=== PATIENT | male | born 1985 | race Caucasian/White ===

== ENCOUNTER 2021-10-04 13:26 | Emergency (ER) | payer MEDICAID, SELFPAY ==
[2021-10-04 13:33] VITALS: BP 105/73; PULSE 74; RESP 16; TEMP 36.5; O2SAT 99
--- NOTE | 2021-10-04 14:37 | ED.SKABFB ---
HPI - Skin/Abscess/Foreign Bdy General Chief complaint: Skin/Abscess/Foreign Body Stated complaint: SPIDER BITE Time Seen by Provider: 10/04/21 14:22 Source: patient and RN notes reviewed Mode of arrival: ambulatory Limitations: no limitations History of Present Illness HPI narrative: Patient presents today complaining of swelling and possible abscess to his right forearm x2 to 3 days. He has picked off the scab and expressed slipped greed purulent discharge a few days ago. States pain radiates to his right elbow. Currently rates his pain 6/10 and has tried no medication for symptoms prior to arrival. MD complaint: abscess/boil Related Data Allergies Allergy/AdvReac Type Severity Reaction Status Date / Time Penicillins Allergy Intermediate Other Verified 10/04/21 14:41 tramadol Allergy Intermediate Swelling Verified 10/04/21 14:40 Review of Systems Review of Systems: CONSTITUTIONAL: Denies body aches, fever, chills, or sweats. EYES: Denies visual changes, redness, or discharge. ENT: Denies rhinorrhea, congestion, sore throat, or otalgia. CARDIOVASCULAR: Denies chest pain, palpitations, or edema. RESPIRATORY: Denies cough or dyspnea. GASTROINTESTINAL: Denies abdominal pain, nausea, vomiting, or diarrhea. GENITOURINARY: Denies dysuria or hematuria. SKIN: Denies rash, itching. + Possible spider bite to right forearm MUSCULOSKELETAL: Denies back pain, joint pain, or myalgia. NEUROLOGIC: Denies headache, numbness, tingling, or weakness. PSYCH: Denies depression or anxiety. PMFSH Comments At time of signature, I have reviewed and agree with nursing past medical, surgical, social and family history unless otherwise noted. Please see nursing chart for further information. There is no relevant family history pertinent to the presenting complaint Exam Narrative: GENERAL: Well-appearing, well-nourished, and in no acute distress. HEAD: Normocephalic, atraumatic. EYES: EOMI. No redness or drainage. Conjunctivae normal. ENT: Mucous membranes pink and moist. NECK: Normal AROM. CHEST: No respiratory distress. EXTREMITIES: Normal range of motion. No edema. SKIN: Warm, dry, no rash. Capillary refill normal. Normal skin turgor. 1.5 x 1 cm fluctuant area of erythema with a small scab in the center to right anterior forearm that is tender to palpation. Distal sensation intact. Capillary refill normal. Radial pulse normal. No red streaking noted. No induration noted. NEURO: No focal deficits. Alert and oriented x3. Gait steady. PSYCH: Normal affect. No signs of depression or anxiety. Course Course Level of Care: Express Care Visit Vital Signs Vital signs: Vital Signs Temperature 97.7 F 10/04/21 13:33 Pulse Rate 74 10/04/21 13:33 Respiratory Rate 16 10/04/21 13:33 Blood Pressure 105/73 10/04/21 13:33 Pulse Oximetry 99 10/04/21 13:33 Temperature 97.7 F 10/04/21 13:33 Pulse Rate 74 10/04/21 13:33 Respiratory Rate 16 10/04/21 13:33 Blood Pressure 105/73 10/04/21 13:33 Pulse Oximetry 99 10/04/21 13:33 Reviewed Procedures Abscess I/D upper extremity: Date of Incision: 10/04/21 Time of Incision: 14:38 Side (if applicable): right (Form) Sedation/analgesia: none Local Anesthetic: none Technique: other (Removed scab with 18-gauge needle and forceps.) Irrigation: No Packing used?: none I&D Results: Pus and Blood Abcess I&D Additional Comments: Dressed with Band-Aid MDM - Skin/Abscess/Foreign Bdy Differential Diagnosis Differential diagnosis: Likely abscess of skin or subcutaneous tissue, cellulitis, insect bites and impetigo Critical Care Time Critical Care Time Critical Care Time: No Discharge Plan Discharge Clinical Impression: Abscess of forearm, right Patient Disposition: Home, Self-Care Condition: Stable Instructions: Antibiotic Form, Abscess (ED), Abscess Incision and Drainage (DC) Additional Instru
== END 2021-10-04 14:45 | disposition home or self-care (01) ==
PROVIDERS: Emergency Provider Nurse Practitioner
DX: L02.413 Cutaneous abscess of right upper limb (principal)
CPT/HCPCS: 10060; 99213; G0463

== ENCOUNTER 2022-04-04 09:51 | Emergency (ER) | payer BC, SELFPAY ==
[2022-04-04 10:03] VITALS: BP 99/66; PULSE 82; RESP 16; TEMP 36.6; O2SAT 100
--- NOTE | 2022-04-04 12:22 | ED_ITS ---
HPI - Extremity Problem General Chief complaint: Extremity Problem,Nontraumatic Stated complaint: right leg pain Time Seen by Provider: 04/04/22 12:16 Source: patient and RN notes reviewed Mode of arrival: ambulatory Limitations: no limitations History of Present Illness HPI Narrative: Patient complaining of right buttock pain and right thigh pain posteriorly radiating to the right foot, intermittently over the last 2 months. Patient works in [employer]. patient denies bowel dysfunction, bladder dysfunction, altered sensation, focal weakness, or saddle numbness, Related Data Allergies Allergy/AdvReac Type Severity Reaction Status Date / Time Penicillins Allergy Intermediate Other Verified 10/04/21 14:41 tramadol Allergy Intermediate Swelling Verified 10/04/21 14:40 Review of Systems Review of Systems: All systems reviewed & are unremarkable except as noted in HPI and below Exam Narrative: General appearance: Well-developed, well-nourished Skin: Normal color Head: Normocephalic, nontraumatic Eyes: Clear conjunctiva ENT: Oropharynx normal, ears normal, nose normal Neck: Supple, nontender Chest and respiratory: Airway patent, no respiratory distress, no accessory muscle use Heart: Regular rate/rhythm Abdomen: Soft, nontender, no organomegaly, quiet bowel sounds Vascular: Normal peripheral pulses, normal capillary refill. 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, no gross motor deficit, positive right leg raising test Course Vital Signs Vital signs: Vital Signs Temperature 36.6 C 04/04/22 10:03 Pulse Rate 82 04/04/22 10:03 Respiratory Rate 16 04/04/22 10:03 Blood Pressure 99/66 L 04/04/22 10:03 Pulse Oximetry 100 04/04/22 10:03 Temperature 36.6 C 04/04/22 10:03 Pulse Rate 88 04/04/22 13:23 Respiratory Rate 18 04/04/22 13:23 Blood Pressure 128/72 04/04/22 13:23 Pulse Oximetry 100 04/04/22 13:23 Critical Care Time Critical Care Time Critical Care Time: No Discharge Plan Discharge Clinical Impression: Right lumbar radiculopathy Condition: Improved Instructions: Lumbar Radiculopathy (ED) Additional Instructions: Return if symptoms are worsening , call your family physician for appointment, take Tylenol as as needed for aches and pain, continue home medications. Prescriptions: New methylprednisolone [Medrol (Yogesh)] 4 mg tablets,dose pack See Rx Instructions PO .COMPLEX Qty: 21 0RF Rx Instructions: orally per package directions No Action sulfamethoxazole-trimethoprim [Bactrim DS] 800-160 mg tablet 1 tablet PO Q12H 10 Days Qty: 20 0RF Follow-up/Referrals: Tramaine Weber MD [Physician] - 04/06/22 UNKNOWN,DOCTOR [Primary Care Provider] - Stand Alone Forms: Work/School Release IP
[2022-04-04] MEDS: ACETAMINOPHEN 500 MG TABLET 1000 MG PO (12:52)
[2022-04-04] MEDS: IBUPROFEN 400 MG TABLET 800 MG PO (12:53)
[2022-04-04 13:23] VITALS: BP 128/72; PULSE 88; RESP 18; O2SAT 100
== END 2022-04-04 13:25 | disposition home or self-care (01) ==
PROVIDERS: Emergency Provider Emergency Medicine
DX: M54.16 Radiculopathy, lumbar region (principal)
CPT/HCPCS: 96372; 99283; A9270; J1100

== ENCOUNTER 2022-09-24 09:14 | Emergency (ER) | payer BC, SELFPAY ==
[2022-09-24 09:23] VITALS: BP 107/90; PULSE 93; RESP 16; TEMP 36.6; O2SAT 100
--- NOTE | 2022-09-24 10:18 | ED.GENADULT ---
HPI - General Adult General Chief complaint: Upper Respiratory Infection Stated complaint: sob Time Seen by Provider: 09/24/22 09:40 Source: patient Mode of arrival: ambulatory Limitations: no limitations History of Present Illness HPI narrative: patient is a 36-year-old male presenting with heaviness in chest inability to breathe . patient was seen at [facility] last on and was given inhaler, lost inhaler 3 days after. patient states he has been having these episodes of shortness of breath since. patient is also having bilateral ear pain with left ear is worse than right. reports he does use Q-tips to try to get wax out. patient also reports increased anxiety over the last year. patient had back surgery last April, continue to have back pain. States he does not take opioids for pain due to sister's overdose last year. but states he takes Tylenol and ibuprofen every day for pain with mild relief. he states father is dying of liver cancer and does not qualify for the transplant list at this time. he also reports loss of vision and right eye for a year and half after mowing accident, has not been seen for this complaint. patient states he is searching for a new primary care doctor that is covered by his insurance, Has an eye appointment tomorrow, and a pulmonology appointment in a week and half. Related Data Allergies Allergy/AdvReac Type Severity Reaction Status Date / Time tramadol Allergy Intermediate Swelling Verified 09/24/22 09:20 Review of Systems Review of Systems: CONSTITUTIONAL: Denies malaise, chills, sweats, or fever. EYES: Denies redness, or discharge. reports right eye vision loss ENT: Denies rhinorrhea, congestion, sinus pain or sore throat. Bilateral otalgia CARDIOVASCULAR: Denies chest pain, palpitations, or edema. RESPIRATORY: reports cough and dyspnea. GASTROINTESTINAL: Denies abdominal pain, nausea, vomiting, diarrhea, bloody, or mucous stools. GENITOURINARY: Denies dysuria or hematuria. SKIN: Denies rash or itching. MUSCULOSKELETAL: Denies joint pain, or myalgia. reports chronic back pain NEUROLOGIC: Denies numbness, weakness, or headache. PSYCHIATRIC: Denies anxiety or depression. All systems reviewed & are unremarkable except as noted in HPI and below PMFSH Comments At time of signature, agree with nursing past medical, surgical, social and family history. There is no relevant family history pertinent to the presenting complaint. Exam Narrative: GENERAL: Well-appearing, well-nourished, and in no acute distress. HEAD: Normocephalic, atraumatic. EYES: Left eye PERRLA, conjunctivae clear, and EOMI. No nystagmus. Right eye with sluggish pupil constriction. ENT: Nares clear, turbinates pink, no rhinorrhea or epistaxis. Mucous membranes moist. Cerumen impaction noted bilaterally. After irrigation TM pearly jenkins with sharp light reflex bilaterally; no tragal tenderness. Oropharynx without erythema or lesions. Tonsils not enlarged and without exudate. NECK: Supple. No lymphadenopathy. No jugular venous distension, thyromegaly, or carotid bruits. Carotids were easily palpable bilaterally. CHEST: No respiratory distress. Clear to auscultation. No bony deformities, no asymmetry. Speaks in full sentences. HEART: Regular rate and rhythm. No murmur heard. Normal peripheral pulses. ABDOMEN: Soft, nontender, nondistended, normal active bowel sounds, no palpable masses. EXTREMITIES: Normal range of motion. No edema. Normal strength and sensation. SKIN: Warm, dry, no rash. NEURO: Alert and oriented x3. No focal deficits. PSYCH: Tearful and anxious Course Course Emergency Course: Patient is aware of diagnosis, understands and agrees to treatment plan. Anticipatory guidance given. Patient agrees to follow-up as directed and is aware of reasons to seek care at the emergency department. Portions of this record may have been created with voice recognition software Level of Care: Express Care Visit Vital Signs V
== END 2022-09-24 11:34 | disposition home or self-care (01) ==
PROVIDERS: Emergency Provider Nurse Practitioner Family
DX: R06.02 Shortness of breath (principal); H61.23 Impacted cerumen, bilateral; F41.9 Anxiety disorder, unspecified; H92.03 Otalgia, bilateral
CPT/HCPCS: 69210; 99213; G0463

== ENCOUNTER 2022-10-04 08:43 | Emergency (ER) | payer BC, SELFPAY ==
--- NOTE | ~2022-10-04 | XR_ITS ---
EXAMINATION: XR chest 2V DATE: 10/04/2022 09:03 INDICATION: Shortness of breath. Anxiety. TECHNIQUE: PA and lateral views of the chest were obtained. COMPARISON: None FINDINGS: The lungs are clear with no focal airspace opacities, pulmonary edema, pleural effusion or pneumothor ax. The cardiomediastinal silhouette is normal. Mild thoracic curvature with mild spondylosis. IMPRESSION: 1. No acute cardiopulmonary disease. Reviewed, dictated and finalized at location A.
[2022-10-04 08:45] VITALS: BP 112/68; PULSE 94; RESP 16; TEMP 36.5; O2SAT 100
--- NOTE | 2022-10-04 08:49 | ECG_ITS ---
Measurements Intervals [place] Rate: 92 P: -3 GA: 158 QRS: -2 QRSD: 105 T: -3 QT: 323 QTc: 400 Interpretive Statements SINUS RHYTHM INCOMPLETE RIGHT BUNDLE BRANCH BLOCK BORDERLINE ST-T WAVE ABNORMALITY- INFERIOR LEADS BASELINE ARTIFACT- I, II BORDERLINE ECG NO PREVIOUS ECG AVAILABLE FOR COMPARISON Electronically Signed On 10-04-2022 13:16:47 CDT by Ta Cisneros D.O.
--- NOTE | 2022-10-04 08:53 | PC.NURSE ---
Patient refusing IV and blood work. Patient states, I don't think I need it .
[2022-10-04 08:56] VITALS: PULSE 107; O2SAT 100
--- NOTE | 2022-10-04 09:31 | PC.NURSE ---
Pt refused blood work and IV line.
--- NOTE | 2022-10-04 10:09 | ED.SOB ---
HPI - SOB/Dyspnea General Chief Complaint: Shortness of Breath/Dyspnea Stated Complaint: shortness of breath/recent diagnosed w/ bronchitis Time Seen by Provider: 10/04/22 09:06 Source: patient Mode of arrival: ambulatory Limitations: no limitations History of Present Illness HPI Narrative: 36-year-old male presents today to the emergency department with complaints of shortness of breath and cough that has been going on for the last few months. Per patient he was seen at [facility] maybe about a month and a half ago that he was seen in urgent care a little over a week ago. He was diagnosed with bronchitis and sent home with inhalers. On both trips he lost the inhaler 3 days after his visit. Patient denies fever, body aches, chills. He does endorse a cough worse at night with postnasal drip. 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 Patient arrived today with complaints of shortness of breath and was slightly tacky. He is refusing any blood work at this time. Did discuss why blood work would be needed and he still refused. He did allow a chest x-ray. Patient aware that he will be signing out AGAINST MEDICAL ADVICE and that he really does need a further work-up considering this is his third trip to be seen for this problem. Patient is aware that he is at risk for worsening of condition, pain, . He is willing to sign out AGAINST MEDICAL ADVICE. MD elicited complaint: shortness of breath and anxiety Onset (ago): month(s) Timing: intermittent Related Data Allergies Allergy/AdvReac Type Severity Reaction Status Date / Time tramadol Allergy Intermediate Swelling Verified 10/04/22 08:48 Review of Systems Review of Systems: CONSTITUTIONAL: Denies fever, chills, or sweats. EYES: Denies visual changes, redness, or discharge. ENT: Left ear pain. Denies rhinorrhea, congestion, sore throat. CARDIOVASCULAR: Intermittent chest pain sharp and stabbing in nature. Denies palpitations, or edema. RESPIRATORY: Denies cough or dyspnea. GASTROINTESTINAL: Denies abdominal pain, nausea, vomiting, or diarrhea. GENITOURINARY: Denies dysuria or hematuria. SKIN: Denies rash or itching. MUSCULOSKELETAL: Denies back pain, joint pain, or myalgia. NEUROLOGIC: Denies headache, numbness, dizziness, or weakness. PSYCHIATRIC: Anxiety denies depression. Exam Narrative: GENERAL: Well-appearing, well-nourished, and in no acute distress. HEAD: Normocephalic, atraumatic. EYES: PERRLA and EOMI. ENT: Bilateral ear cerumen impaction. Able to clear partially out of left ear canal. Redness noted to left tympanic membrane. Nares clear, no rhinorrhea or epistaxis. Mucous membranes moist. Oropharynx without tonsillar hypertrophy exudate or other lesions. NECK: Supple. No adenopathy or masses. No carotid bruits or JVD CHEST: Clear to auscultation. No respiratory distress. No wheezes rales or rhonchi HEART: Regular rate and rhythm. No murmur heard. Normal peripheral pulses. ABDOMEN: Soft, nontender, nondistended, normal active bowel sounds. EXTREMITIES: Normal range of motion. No edema. SKIN: Warm, dry, no rash. NEURO: No focal deficits. Alert and oriented x3. PSYCH: Anxious. Normal mood and affect. Course Course Emergency Course: Patient was seen. Explained reasoning behind plan of care. Refusing any further work-up. Stating he needs something for anxiety. He was told he will not get that while he is here. Patient aware chest x-ray showed no pneumonia. That his left ear will be treated for an ear infection. He was wearing his follow-up with his primary states he has an appointment with a processing mgr in 3 weeks. Patient encouraged to return with any new or worsening concerns or if he would like further work-up. Vital Signs Vital signs: Vital Signs Temperature 97.7 F 10/04/22 08:45 Pulse Rate 94 10/04/22 08:45 Respiratory Rate 16 10/04/22 08:45 Blood Pressure
== END 2022-10-04 10:21 | disposition left against medical advice (07) ==
PROVIDERS: Emergency Provider Nurse Practitioner Family
DX: J40 Bronchitis, not specified as acute or chronic (principal); R05.2 Subacute cough; H66.90 Otitis media, unspecified, unspecified ear; Z91.199 Patient's noncompliance with other medical treatment and regimen due to unspecified reason
CPT/HCPCS: 71046; 93005; 99283

== ENCOUNTER 2022-11-18 10:31 | Emergency (ER) | payer OTHER, SELFPAY ==
[2022-11-18 10:40] VITALS: BP 110/48; PULSE 69; RESP 16; TEMP 35.7; O2SAT 99
--- NOTE | 2022-11-18 10:59 | ED.GENADULT ---
HPI - General Adult General Chief complaint: Recheck/Abnormal Lab/Rx Stated complaint: medication refill Time Seen by Provider: 11/18/22 10:45 Source: patient Mode of arrival: ambulatory Limitations: no limitations History of Present Illness HPI narrative: Patient presents today requesting a refill on his albuterol inhaler. States he has 2 puffs left and his breathing is worsened when he is outside. 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 His last refill was at [facility] approximately 6 weeks ago. States he also tried to take some Claritin, but states it makes him too drowsy. He was supposed to see a ground instructor advanced last month, but they did not take his insurance and he had to switch to a different type and cannot find a PCP that takes his current insurance. Related Data Home Medications Medication Instructions Recorded Confirmed Claritin 11/18/22 Allergies Allergy/AdvReac Type Severity Reaction Status Date / Time tramadol Allergy Intermediate Swelling Verified 11/18/22 10:37 Review of Systems Review of Systems: CONSTITUTIONAL: Denies body aches, fever, chills, or sweats. EYES: Denies visual changes, redness, or discharge. ENT: Denies rhinorrhea, congestion, sore throat, or otalgia. CARDIOVASCULAR: Denies chest pain, palpitations, or edema. RESPIRATORY: + shortness of breath when outside GASTROINTESTINAL: Denies abdominal pain, nausea, vomiting, or diarrhea. GENITOURINARY: Denies dysuria or hematuria. SKIN: Denies rash, itching, or wounds. MUSCULOSKELETAL: Denies back pain, joint pain, or myalgia. NEUROLOGIC: Denies headache, numbness, tingling, or weakness. PSYCH: Denies depression or anxiety. PMFSH Comments At time of signature, I have reviewed and agree with nursing past medical, surgical, social and family history unless otherwise noted. Please see nursing chart for further information. There is no relevant family history pertinent to the presenting complaint Exam Narrative: GENERAL: Well-appearing, well-nourished, and in no acute distress. HEAD: Normocephalic, atraumatic. EYES: EOMI. No redness or drainage. Conjunctivae normal. ENT: Mucous membranes pink and moist. Nares clear. No rhinorrhea. TMs normal bilaterally. Throat normal. Uvula midline. NECK: Normal AROM. Supple. No lymphadenopathy. CHEST: No respiratory distress. Clear to auscultation. HEART: Regular rate and rhythm. No murmur appreciated. Normal peripheral pulses. EXTREMITIES: Normal range of motion. No edema. SKIN: Warm, dry, no rash. Capillary refill normal. Normal skin turgor. NEURO: No focal deficits. Alert and oriented x3. Gait steady. PSYCH: Normal affect. No signs of depression or anxiety. Course Course Level of Care: Express Care Visit Vital Signs Vital signs: Vital Signs Temperature 96.3 F L 11/18/22 10:40 Pulse Rate 69 11/18/22 10:40 Respiratory Rate 16 11/18/22 10:40 Blood Pressure 110/48 L 11/18/22 10:40 Pulse Oximetry 99 11/18/22 10:40 Oxygen Delivery Room Air 11/18/22 10:40 Temperature 96.3 F L 11/18/22 10:40 Pulse Rate 69 11/18/22 10:40 Respiratory Rate 16 11/18/22 10:40 Blood Pressure 110/48 L 11/18/22 10:40 Pulse Oximetry 99 11/18/22 10:40 Oxygen Delivery Room Air 11/18/22 10:40 Reviewed Medical Decision Making MDM Narrative Medical decision making narrative: Will refill patient's albuterol inhaler. Will give phone number for Dae's physician liaison to find a new primary. Discussed trying a different [id number] antihistamine for allergy symptoms. Anticipatory guidance given. Differential Diagnosis Differential Diagnosis: Asthma exacerbation, shortness of breath, bronchitis, seasonal allergies Vital Signs Vital Signs: Vital Signs Temperature 96.3 F L 11/18/22 10:40 Pulse Rate 69 11/18/22 10:40 Respiratory Rate 16 11/18/22 10:40 Blood Pressure 110/48 L 11/18/22 10:40 Pulse Oximetry 99 11/18/22 10:40 Oxygen Delivery Room
== END 2022-11-18 11:14 | disposition home or self-care (01) ==
PROVIDERS: Emergency Provider Nurse Practitioner
DX: Z76.0 Encounter for issue of repeat prescription (principal)
CPT/HCPCS: 99211; G0463

== ENCOUNTER 2022-12-13 16:11 | Emergency (ER) | payer OTHER, SELFPAY ==
--- NOTE | 2022-12-13 16:20 | ED.URI ---
HPI - URI/Sore Throat General Chief Complaint: Skin/Abscess/Foreign Body Stated Complaint: Ears Irritation/Boil Time Seen by Provider: 12/13/22 16:20 Source: patient Mode of arrival: ambulatory Limitations: no limitations History of Present Illness HPI Narrative: Mr. Cool is a 36-year-old male patient presenting to the clinic today with complaints bilateral ear pain, cough, and congestion. States that he had noticed a boil in is here however his girlfriend has drained that and he does not feel the blood will at this time. MD elicited complaint: sore throat and nasal congestion Related Data Home Medications Medication Instructions Recorded Confirmed Claritin 11/18/22 Allergies Allergy/AdvReac Type Severity Reaction Status Date / Time tramadol Allergy Intermediate Swelling Verified 12/13/22 16:36 Review of Systems Review of Systems: Pertinent positives per HPI. Patient denies any fever, chills, rash, headache, visual changes, dizziness, cough, shortness of breath, chest pain, palpitations, nausea, vomiting, diarrhea, constipation, abdominal pain, or any urinary issues. PMFSH Comments At the time of my signature, I reviewed and agree with the nursing past medical, surgical, social, and family history. There is no relevant family history pertinent to the patient complaint. Exam Narrative: General: Well-developed, well nourished, in no apparent distress Head: Normocephalic, atraumatic Eyes: Pupils equally round and reactive to light bilaterally, EOM intact, sclera and conjunctive clear, no discharge, lids normal Ears: TMs intact and clear, right ear canal clear, left ear canal swollen and red, no drainage, grossly hearing normal. Nose: Nares patent, clear nasal discharge, no inflammation, no sinus tenderness. Mouth: Oral pharynx without lesions or masses, good dentition, MMM. Neck: Supple, trachea midline, no enlargement of anterior or posterior cervical nodes, no thyroid masses or goiter palpable. Cardio: Regular rate and rhythm, s1 and s2 normal, no murmur appreciated. Resp: Clear to auscultation bilaterally, no rhonchi, rales, wheezing or rubs Course Course Emergency Course: Portions of this record may have been created with voice recognition software. Level of Care: Express Care Visit Vital Signs Vital signs: Vital signs reviewed MDM - URI/Sore Throat MDM Narrative Medical decision making narrative: At the time of visit patient is resting comfortably on the exam table. I suspect patient has allergic rhinitis, left otitis externa, and congestion. Will send in prescription for Claritin, Flonase, albuterol inhaler, and ofloxacin ear drops. Supportive measures were discussed with the patient and he voiced understanding discharge instructions and agrees to treatment plan. Differential Diagnosis Differential diagnosis: Likely upper respiratory infection, otitis media, sinusitis, viral infection, bronchitis, influenza, pharyngitis and other (COVID) Discharge Plan Discharge Clinical Impression: Acute cough Allergic rhinitis Qualifiers: Allergic rhinitis trigger: unspecified Allergic rhinitis seasonality: seasonal Qualified Code(s): J30.2 - Other seasonal allergic rhinitis Acute otitis externa of left ear Qualifiers: Otitis externa type: diffuse Qualified Code(s): H60.312 - Diffuse otitis externa, left ear Patient Disposition: Home, Self-Care Condition: Stable Instructions: Antibiotic Form, Swimmer's Ear (ED), Allergies (ED), Acute Cough (ED) Additional Instructions: Take prescription medications only as prescribed-ofloxacin ear drops, albuterol inhaler, Claritin, and Flonase Increase fluids and stay well hydrated Tylenol/motrin for pain/fever Flonase and OTC antihistamines as directed Vicks vapor rub to open sinuses Sinus rinses for congestion Cepacol spray, cough drops, throat lozenges, warm tea with honey/lemon, gargle salt water to soothe throat BRAT diet
[2022-12-13 16:26] VITALS: BP 135/76; PULSE 89; RESP 16; TEMP 36.8; O2SAT 100
== END 2022-12-13 16:43 | disposition home or self-care (01) ==
PROVIDERS: Emergency Provider Nurse Practitioner Family
DX: R05.1 Acute cough (principal); J30.2 Other seasonal allergic rhinitis; H60.312 Diffuse otitis externa, left ear
CPT/HCPCS: 99213; G0463

== ENCOUNTER 2023-01-11 14:34 | Emergency (ER) | payer OTHER, SELFPAY ==
[2023-01-11 14:53] VITALS: BP 120/65; PULSE 107; RESP 20; TEMP 37.4; O2SAT 100
--- NOTE | 2023-01-11 16:08 | ED.GENADULT ---
HPI - General Adult General Chief complaint: Asthma Stated complaint: SOB Time Seen by Provider: 01/11/23 16:08 Source: patient Mode of arrival: ambulatory Limitations: no limitations History of Present Illness HPI narrative: 37-year-old male with a history of asthma presented for complaint of feeling short of breath since noon today. States it feels like he cannot get a full deep breath. Denies difficulty speaking. He endorses he is out of his rescue inhaler. States he goes through an inhaler about every other month. He does not have a PCP or pharmacoepidemiologist due to insurance changes. He denies wheezing, chest pain, palpitations, dizziness, nausea, vomiting, lethargy or fever. He smokes 1/2 pack per day, states he has not been able to today. Related Data Home Medications Medication Instructions Recorded Confirmed Claritin 11/18/22 Allergies Allergy/AdvReac Type Severity Reaction Status Date / Time tramadol Allergy Intermediate Swelling Verified 01/11/23 14:45 Review of Systems Review of Systems: CONSTITUTIONAL: Denies body aches, fever, chills, or sweats. EYES: Denies visual changes, redness, or discharge. ENT: Denies rhinorrhea, congestion, sore throat, or otalgia. CARDIOVASCULAR: Denies chest pain, palpitations, or edema. RESPIRATORY: Reports sob, denies cough, wheezing. GASTROINTESTINAL: Denies abdominal pain, nausea, vomiting, or diarrhea. GENITOURINARY: Denies dysuria or hematuria. SKIN: Denies rash, itching, or wounds. MUSCULOSKELETAL: Denies back pain, joint pain, or myalgia. NEUROLOGIC: Denies headache, numbness, tingling, or weakness. PSYCH: Denies depression or anxiety. All systems reviewed & are unremarkable except as noted in HPI and below [facility] Past Medical History Medical History (Updated 01/11/23 @ 16:23 by Jennifer Messer APRN) Asthma Social History Social History (Updated 01/11/23 @ 16:22 by Jennifer Messer APRN) Smoking status: Current every day smoker Comments At time of signature, I have reviewed and agree with nursing past medical, surgical, social and family history unless otherwise noted. Please see nursing chart for further information. There is no relevant family history pertinent to the presenting complaint Exam Narrative: GENERAL: Well-appearing, in no acute distress. EYES: EOMI. No redness or drainage. Conjunctivae normal. ENT: Mucous membranes pink and moist. No rhinorrhea. TMs normal bilaterally. Throat normal. Uvula midline. NECK: Normal AROM. Supple. CHEST: No respiratory distress. Lungs clear to all gruber. No cough. Speaks full sentences. HEART: Regular rate and rhythm. No murmur appreciated. ABDOMEN: Soft, nontender, nondistended, normal active bowel sounds. EXTREMITIES: Normal range of motion. No edema. SKIN: Warm, dry, no rash. Capillary refill normal. Normal skin turgor. NEURO: Alert and oriented x3. Gait steady. PSYCH: Anxious Course Course Emergency Course: Patient is aware of diagnosis, understands and agrees to treatment plan. Anticipatory guidance given. Patient agrees to follow-up as directed and is aware of reasons to seek care at the emergency department. Portions of this record may have been created with voice recognition software Level of Care: Express Care Visit Vital Signs Vital signs: Vital Signs Temperature 99.4 F 01/11/23 14:53 Pulse Rate 107 H 01/11/23 14:53 Respiratory Rate 01/11/23 14:53 Blood Pressure 120/65 01/11/23 14:53 Pulse Oximetry 100 01/11/23 14:53 Oxygen Delivery Room Air 01/11/23 14:53 Temperature 99.4 F 01/11/23 14:53 Pulse Rate 107 H 01/11/23 14:53 Respiratory Rate 01/11/23 14:53 Blood Pressure 120/65 01/11/23 14:53 Pulse Oximetry 100 01/11/23 14:53 Oxygen Delivery Room Air 01/11/23 14:53 Medical Decision Making [facility] Narrative Medical decision making narrative: Discussed physical exam findings. Patient is well appearing/anxious. W
--- NOTE | 2023-01-23 11:49 | PC.NURSE ---
called and stated was seen here 01/11/23 and had rx for inhaler, was unable to fill rx d/t insurance would not cover and was told to wait 1.5 wk and insurance would then cover cost, went to pharmacy today and was told rx was cancelled. requested rx to be reordered. aware to have pharmacy call [facility] directly per shingle cutter request.
--- NOTE | 2023-01-23 12:38 | PC.NURSE ---
pt did not have pharmacy call back at this time. pt did clarify pharmacy information in chart was correct. this rn called pharmacy to clarify information, pharmacist stated inhaler was picked up 01/11/23 at 525pm and could pull security camera to show person who did p/u. pharmacist stated while on telephone another order for inhaler came across from [facility] today. this rn called pt and pt confirmed was at another urgent care and did have another inhaler rx sent. is aware pharmacy has security camera to show roll picker person if pt believes medication was picked up from unknown person.
== END 2023-01-11 16:30 | disposition home or self-care (01) ==
PROVIDERS: Emergency Provider Nurse Practitioner Family
DX: J45.909 Unspecified asthma, uncomplicated (principal); F17.200 Nicotine dependence, unspecified, uncomplicated
CPT/HCPCS: 99213; G0463

== ENCOUNTER 2023-05-04 17:16 | Emergency (ER) | payer OTHER, SELFPAY ==
--- NOTE | 2023-05-04 17:23 | ED.EAR ---
HPI - Ear Problem General Chief complaint: Ear Stated complaint: Left Ear Irritation/Athma Time Seen by Provider: 05/04/23 17:23 Source: patient Mode of arrival: ambulatory Limitations: no limitations History of Present Illness HPI Narrative: Patient is a 37-year-old male who presents with bilateral ear irritation, left ear is more painful. Patient reports ears have been bothering him for 3 weeks but have worsened the last 2 days. Denies any congestion, sore throat, fever, chills, nausea, vomiting, diarrhea. Also requests refill on asthma inhaler and Claritin. Patient has appointment with superintendent horticulture next week. MD Complaint: ear pain Related Data Home Medications Medication Instructions Recorded Confirmed Claritin 11/18/22 Allergies Allergy/AdvReac Type Severity Reaction Status Date / Time tramadol Allergy Intermediate Swelling Verified 05/04/23 17:20 Review of Systems Review of Systems: All systems reviewed & are unremarkable except as noted in HPI and below Constitutional: Constitutional: Denies body ache(s), Denies chills, Denies fever(s), Denies headache(s) and Denies malaise Eyes: Eyes: Denies blurry vision, Denies eye discharge and Denies irritation ENT: Reports otalgia, Denies headache(s), Denies nasal congestion, Denies nasal discharge and Denies sore throat Cardiovascular: Cardiovascular: Denies chest pain, Denies edema, Denies palpitations and Denies dyspnea on exertion Respiratory: Respiratory: Denies cough and Denies dyspnea on exertion Gastrointestinal: Gastrointestinal: Denies abdominal pain, Denies diarrhea, Denies nausea and Denies vomiting Musculoskeletal: Musculoskeletal: Denies back pain, Denies arthralgias and Denies muscle weakness Integumentary/Breasts: Skin/Breast: Denies pruritus and Denies rash Neurologic: Denies headache(s) Psychiatric: Psychiatric: Reports no additional psychiatric complaints Endocrine: Endocrine: Denies palpitations PMFSH Past Medical History Medical History Asthma Social History Social History Smoking status: Current every day smoker Comments At time of signature, agree with nursing past medical, surgical, social and family history. There is no relevant family history pertinent to the presenting complaint? Exam Const: General: cooperative, healthy appearing, no acute distress and well nourished Nutritional Appearance: well nourished Orientation/consciousness: patient oriented x3 Limitations: no limitations HENMT: Head: normal to inspection, normocephalic and atraumatic Ears: hearing grossly normal bilaterally, EAC's normal, no periauricular adenopathy and TM abnormal obstructed by cerumen bilateral Face/Nose/Sinus: Normal external nose present, Normal nares present, Normal nasal mucous membranes and turbinates present, No nasal discharge present, normal facial exam and sinuses nontender Face and sinus: normal facial exam and sinuses nontender Mouth: Yes Normal oral and palatal mucosa present, Yes lip normal, Yes tongue normal and Yes moist mucous membranes Throat: posterior oropharynx normal, tonsils normal and uvula midline Eyes: General: appearance normal, both eyes and all related structures Alignment and Position: alignment normal and position normal Eyelids: eyelids normal Pupils: Equal, round and reactive pupils present EOM: EOMs intact bilaterally Neck: Neck: normal visual inspection, full ROM, no lymphadenopathy and supple Chest: Chest palpation & inspection: normal inspection of the chest Resp: Effort & Inspection: normal respiratory effort and able to speak in complete sentences Auscultation: clear to auscultation bilaterally, no crackles, no rales, no rhonchi and no wheezes Cardio: Rate: regular rate Rhythm: regular rhythm Heart sounds: S1 normal heart sound present and S2 normal heart sound present Skin: General sk
[2023-05-04 17:27] VITALS: BP 108/59; PULSE 101; RESP 16; TEMP 37.2; O2SAT 100
--- NOTE | 2023-05-04 17:42 | PC.NURSE ---
process improvement consultant in to do ear irrigation.
== END 2023-05-04 18:01 | disposition home or self-care (01) ==
PROVIDERS: Emergency Provider Nurse Practitioner Family
DX: H66.002 Acute suppurative otitis media without spontaneous rupture of ear drum, left ear (principal); H61.23 Impacted cerumen, bilateral; J45.909 Unspecified asthma, uncomplicated; F17.200 Nicotine dependence, unspecified, uncomplicated
CPT/HCPCS: 69209; 99213; G0463